=== PATIENT | male | born 1965 | race African-American/Black ===

== ENCOUNTER 2021-09-27 14:00 | Emergency (ER) | payer MEDICARE, SELFPAY ==
[2021-09-27 14:06] VITALS: BP 141/70; PULSE 98; RESP 17; TEMP 36.5; O2SAT 98
--- NOTE | 2021-09-27 14:24 | ED.SKABFB ---
HPI - Skin/Abscess/Foreign Bdy General Chief complaint: Skin/Abscess/Foreign Body Stated complaint: bug bite Time Seen by Provider: 09/27/21 14:17 History of Present Illness HPI narrative: Sister noticed that he looks like he had a bug bite on his left arm on , she took a picture of it and noticed that today it seemed to have gotten bigger and spread up the arm, she noticed that there were also 2 small bug bites on the left lower arm. 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 No fevers or chills, no nausea vomiting, he has been behaving normally. Related Data Allergies Allergy/AdvReac Type Severity Reaction Status Date / Time Penicillins Allergy Unknown Verified 09/27/21 14:11 Review of Systems Review of Systems: CONST: No fever. HEENT: No sore throat C/V: No chest pain RESP: No difficulty breathing GI: No vomiting : No dysuria. M/S: Redness left arm with some swelling SKIN: No rash. NEURO: [No headache or focal numbness or weakness] PSYCH: [No depression] [facility] Past Medical History Medical History (Updated 09/27/21 @ 14:28 by Teresa Ozuna MD) Autism Social History Social History (Updated 09/27/21 @ 14:24 by Teresa Ozuna MD) Smoking status: Never smoker Exam Narrative: EXAMINATION OF ORGAN SYSTEMS/BODY AREAS: Constitutional: Vital signs per nursing GENERAL:[No acute distress, non-toxic appearing.] HEAD: Normal with no signs of head trauma. EYES: EOMI, conjunctiva normal ENT: Hearing grossly intact LUNGS: Nonlabored breathing. HEART: [Regular rate and rhythm] ABD: Nondistended EXT: Normal range of motion; erythema without much tenderness to the left upper arm SKIN: Two small erythematous lesions that appear excoriated to left lower arm NEURO: [Alert and oriented x 3. No gross focal sensory or strength deficits.] PSYCH: Normal affect Course Vital Signs Vital signs: Vital Signs Temperature 97.7 F 09/27/21 14:06 Pulse Rate 98 09/27/21 14:06 Respiratory Rate 17 09/27/21 14:06 Blood Pressure 141/70 H 09/27/21 14:06 Pulse Oximetry 98 09/27/21 14:06 Oxygen Delivery Room Air 09/27/21 14:06 Temperature 97.7 F 09/27/21 14:06 Pulse Rate 98 09/27/21 14:06 Respiratory Rate 17 09/27/21 14:06 Blood Pressure 141/70 H 09/27/21 14:06 Pulse Oximetry 98 09/27/21 14:06 Oxygen Delivery Room Air 09/27/21 14:06 MDM - Skin/Abscess/Foreign Bdy MDM Narrative Medical decision making narrative: 55-year-old male presenting with suspected insect bite/sting, vital stable, no systemic symptoms, exam shows some erythema to the left upper arm that does appear increased compared to the picture from 3 days ago, exam does appear somewhat consistent with cellulitis, I will start him on antibiotics with follow-up to his primary care doctor, return precautions provided. Stable for discharge home at this time. Discharge Plan Discharge Clinical Impression: Cellulitis, Insect bites Patient Disposition: Home, Self-Care Condition: Stable Instructions: Antibiotic Form, Cellulitis (ED), Insect Bite or Sting (ED) Additional Instructions: Please take the medications, and followup with your doctor; if Mr. Otto's symptoms get worse or he starts having fevers or vomiting, please take him back to the hospital Prescriptions: New clindamycin HCl 150 mg capsule 450 mg PO Q8H 7 Days Qty: 63 0RF hydrocortisone [Cortisone (hydrocortisone)] 1 % cream 1 applic topical BID PRN (Reason: rash) Qty: 28.4 0RF Follow-up/Referrals: PHYSICIAN,[employer] [Primary Care Provider] -
== END 2021-09-27 15:18 | disposition home or self-care (01) ==
LOC: ANHED 14:49
PROVIDERS: Emergency Provider Emergency Medicine
DX: L03.114 Cellulitis of left upper limb (principal); S50.862A Insect bite (nonvenomous) of left forearm, initial encounter; W57.XXXA Bitten or stung by nonvenomous insect and other nonvenomous arthropods, initial encounter; F84.0 Autistic disorder
CPT/HCPCS: 99283

== ENCOUNTER 2022-09-24 16:51 | Emergency (ER) | payer MEDICARE, SELFPAY ==
[2022-09-24 16:57] VITALS: BP 126/69; PULSE 80; RESP 19; TEMP 36.7; O2SAT 98
--- NOTE | 2022-09-24 17:29 | ED.DENTAL ---
HPI - Dental/Oral General Chief complaint: Dental/Oral Stated complaint: Possible jaw abscess Time Seen by Provider: 09/24/22 17:17 History of Present Illness HPI Narrative: Patient is a 56-year-old male with history of autism who presents ER with concerns for possible infection to the left jaw. His autism school/daycare noticed that his left jaw is swollen today and concerned he may have infection. Patient has poor dentition and does not like dentists. We will not offer any history other than that he does not like dentists. Family noticed he was digging out a tooth last night during dinner but did not think much of it. He also noticed she has developed a rash to his left upper lip and left lower lip. He has not complained of any pain to the outside of his skin. They have noticed no drainage. Related Data Allergies Allergy/AdvReac Type Severity Reaction Status Date / Time Penicillins Allergy Unknown Verified 09/24/22 17:38 Review of Systems Review of Systems: ROS unobtainable: Yes unobtainable due to mental status PMFSH Past Medical History Medical History (Updated 09/24/22 @ 17:31 by Juliano Tilley MD) Autism Surgical History Surgical History (Updated 09/24/22 @ 21:27 by Juliano Tilley MD) No pertinent past surgical history Social History Social History (Updated 09/27/21 @ 14:24 by Teresa Ozuna MD) Smoking status: Never smoker Exam Narrative: GENERAL: Well-appearing, well-nourished, and in no acute distress. HEAD: Normocephalic, atraumatic. ENT: Mucous membranes moist. Mild swelling left lower jaw. No tenderness palpation. Significant dental plaque to all teeth. No fluctuant abscess noted. No trismus. Normal posterior oropharynx. Rash to the lateral upper and lower lips that appears fungal in nature. Circular with sloughing skin. No vesicles or pustules. No erythema. NECK: Supple. CHEST: Clear to auscultation. No respiratory distress. EXTREMITIES: Normal range of motion. No edema. SKIN: Warm, dry, no rash. NEURO: Alert and oriented x3. PSYCH: Normal mood and affect. Course Course Emergency Course: Patient be treated for dental infection and ringworm. Educated family who is with the patient. Vital Signs Vital signs: Vital Signs Temperature 98.0 F 09/24/22 16:57 Pulse Rate 80 09/24/22 16:57 Respiratory Rate 19 09/24/22 16:57 Blood Pressure 126/69 09/24/22 16:57 Pulse Oximetry 98 09/24/22 16:57 Temperature 98.0 F 09/24/22 16:57 Pulse Rate 80 09/24/22 16:57 Respiratory Rate 19 09/24/22 16:57 Blood Pressure 126/69 09/24/22 16:57 Pulse Oximetry 98 09/24/22 16:57 Discharge Plan Discharge Clinical Impression: Pain, dental, Facial ringworm Patient Disposition: Home, Self-Care Condition: Stable Instructions: Antibiotic Form, Toothache (ED), Skin Yeast Infection (ED) Additional Instructions: Take the oral antibiotics to help treat a possible dental infection. There is also noted that you are developing a rash on your face and you are going to be prescribed clotrimazole cream to apply twice a day for the next 4 weeks. Follow-up with your primary care doctor for further treatment and evaluation. Prescriptions: New clindamycin HCl 150 mg capsule 450 mg PO Q8H 7 Days Qty: 63 0RF clotrimazole 1 % cream 1 applic topical BID 28 Days Qty: 30 0RF No Action clindamycin HCl 150 mg capsule 450 mg PO Q8H 7 Days Qty: 63 0RF hydrocortisone [Cortisone (hydrocortisone)] 1 % cream 1 applic topical BID PRN (Reason: rash) Qty: 28.4 0RF Follow-up/Referrals: Rupesh Tapia MD [Physician] - 1 Week PHYSICIAN,TOOL [employer]ING MACHINE SET UP OPERATOR [Non-Staff] - Stand Alone Forms: Work/School Release IP
== END 2022-09-24 17:50 | disposition home or self-care (01) ==
LOC: ANHED 17:34
PROVIDERS: Emergency Provider Emergency Medicine
DX: B35.8 Other dermatophytoses (principal); K08.89 Other specified disorders of teeth and supporting structures; F84.0 Autistic disorder
CPT/HCPCS: 99283